=== PATIENT | male | born 1955 | race Caucasian/White ===

== ENCOUNTER 2020-04-07 08:52 | Emergency (ER) | payer MEDICARE, BC ==
[~2020-04-07] VITALS: Ht 170.2 cm; Wt 135.9 kg
[~2020-04-07 08:52] MED LIST: ALPRAZOLAM; ALTACE 5MG5 MG PO; AMITRIPTYLINE H25 M1 PO; ASPIRIN E.C. 8181 MG PO; CRESTOR40 MG PO; KLONOPIN 0.5MG0.5 MG PO; LEVAQUIN 5500 MG/TA1 PO; LIPITOR 80MG80 MG PO; METOPROLOL SUCCINATE; NITROSTAT0.4 MG SL; NITROSTAT0.4 MG/TAB SL; PHENERGAN 25 TA25 MG PO; PLAVIX 75MG TAB75 MG PO; TEGRETOL X100 MG/TAB PO; TEGRETOL X200 MG/TA1 PO; XANAX .25M0.25 MG/TA PO; ZOCOR 20MG20 MG PO; ZOLOFT 100MG100 MG PO; ZOLOFT100 MG PO; ZYRTEC 10MG10 MG PO
[2020-04-07 08:59] VITALS: TEMP 98.1
[2020-04-07 09:28] LABS: BASO # 0.1 (0.0-0.2); BASO % 0.6 % (0.0-2.0); EOS # 0.5 (0.0-0.7); EOS % 5.2 % (0-4.0); GRAN # 6.6 (1.4-6.5); GRAN % 64.2 % (42.2-75.2); HEMATOCRIT 44.7 % (42.0-52.0); LYMPH # 1.9 (1.2-3.4); LYMPH % 18.7 % (20.0-51.0); MEAN CELL VOLUME 91 fl (80.0-100.0); MEAN CORPUSCULAR HEMOGLOBIN 31 pg (27.0-31.0); MEAN CORPUSCULAR HGB CONC 34 g/dl (33.0-37.0); MEAN PLATELET VOLUME 9.6 fl (7.4-10.4); MONO # 1.1 (0.1-0.6); MONO % 10.8 % (1.7-9.3); PLATELET COUNT 204 K/mm3 (130-400); RED BLOOD COUNT 4.91 M/mm3 (4.20-5.60); REDCELL DISTRIBUTION WIDTH-CV 13.1 % (11.5-14.5)
[2020-04-07 09:29] LABS: INR 1.1 (0.8-3.0); PROTHROMBIN TIME 12.4 SECONDS (9.7-12.8)
[2020-04-07 09:45] LABS: BILIRUBIN,TOTAL 0.8 mg/dL (0.0-1.0); CALCIUM 9.1 mg/dL (8.4-10.2); CREATININE, serum 0.81 (0.66-1.25); POTASSIUM 4.3 mmol/L (3.4-5.0); TOTAL PROTEIN 7.2 gm/dL (6.4-8.2)
[2020-04-07 12:00] VITALS: BP 112/63; PULSE 63
== END 2020-04-07 12:10 | disposition home or self-care (01) ==
LOC: COL.ER 08:52
PROVIDERS: Family Medicine
DX: G45.9 Transient cerebral ischemic attack, unspecified (principal); Z87.891 Personal history of nicotine dependence; Z86.73 Personal history of transient ischemic attack (TIA), and cerebral infarction without residual deficits; Z79.02 Long term (current) use of antithrombotics/antiplatelets
CPT/HCPCS: Q9967

== ENCOUNTER → 2020-05-12 | Outpatient (CLI) | payer MEDICARE, BC | LOC: COL.RAD 13:30 | DX: G40.209 Localization-related (focal) (partial) symptomatic epilepsy and epileptic syndromes with complex partial seizures, not intractable, without status epilepticus (principal); G45.9 Transient cerebral ischemic attack, unspecified; G93.0 Cerebral cysts; I63.9 Cerebral infarction, unspecified ==

== ENCOUNTER → 2020-06-03 | Outpatient (CLI) | payer MEDICARE, BC | LOC: COL.PUL 12:59 | DX: R06.02 Shortness of breath (principal); Z87.891 Personal history of nicotine dependence | CPT/HCPCS: J7674 ==

== ENCOUNTER → 2020-06-10 | Outpatient (CLI) | payer MEDICARE, BC | LOC: COL.CARD 09:35 | DX: G40.909 Epilepsy, unspecified, not intractable, without status epilepticus (principal) ==

== ENCOUNTER 2020-11-21 09:13 | Emergency (ER) | payer MEDICARE, BC ==
[~2020-11-21] VITALS: Ht 170.2 cm; Wt 128.6 kg
[2020-11-21 09:17] VITALS: TEMP 97.6
[2020-11-21 09:48] LABS: COLLECTION METHOD CLEAN CATCH
[2020-11-21 09:50] LABS: BASO % 0.3 % (0.0-2.0); EOS # 1.1 (0.0-0.7); EOS % 8.3 % (0-4.0); GRAN # 8.5 (1.4-6.5); GRAN % 67.4 % (42.2-75.2); HEMATOCRIT 49.7 % (42.0-52.0); HEMOGLOBIN 17.1 g/dl (13.5-18.0); LYMPH # 1.7 (1.2-3.4); LYMPH % 13.5 % (20.0-51.0); MEAN CELL VOLUME 89 fl (80.0-100.0); MEAN CORPUSCULAR HEMOGLOBIN 31 pg (27.0-31.0); MEAN CORPUSCULAR HGB CONC 34 g/dl (33.0-37.0); MEAN PLATELET VOLUME 9.5 fl (7.4-10.4); MONO # 1.3 (0.1-0.6); PLATELET COUNT 263 K/mm3 (130-400); RED BLOOD COUNT 5.57 M/mm3 (4.20-5.60); REDCELL DISTRIBUTION WIDTH-CV 13.6 % (11.5-14.5)
[2020-11-21] MEDS ORDERED: CENTRUM SILVER1 TAB (09:52)
[2020-11-21] MEDS ORDERED: LOPRESSOR 225 MG/TAB PO (09:53)
[2020-11-21 09:57] LABS: MUCOUS Present /lpf; PH 5 (5-8); URINE APPEARANCE Hazy; URINE BACTERIA None Seen /hpf; URINE BILIRUBIN Negative (NEGATIVE); URINE BLOOD Negative (NEGATIVE); URINE COLOR Amber; URINE GLUCOSE Negative (NEGATIVE); URINE KETONE Negative (NEGATIVE); URINE LEUKOCYTE ESTERASE Negative (NEGATIVE); URINE NITRATE Negative (NEGATIVE); URINE PROTEIN(semi-quant) 1+ (NEGATIVE); URINE RBC 0-2 /hpf
[2020-11-21] MEDS ORDERED: OZEMPIC0.25 MG/0. SQ (09:57)
[2020-11-21] MEDS ORDERED: NITROSTAT0.4 MG/TAB SL (10:00)
[2020-11-21] MEDS ORDERED: CARDENE 20MG CA20 M1 PO (10:01)
[2020-11-21] MEDS ORDERED: VIAGRA50 M1 (10:02)
[2020-11-21] MEDS ORDERED: VITAMIND3 5000 PO (10:03)
[2020-11-21 10:04] LABS: ALBUMIN 4.4 gm/dL (3.5-5.0); BILIRUBIN,TOTAL 1.2 mg/dL (0.0-1.0); C-REACTIVE PROTEIN 3.3 mg/dL (0.0-0.9); CALCIUM 9.6 mg/dL (8.4-10.2); CREATININE, serum 0.93 (0.66-1.25); POTASSIUM 3.7 mmol/L (3.4-5.0); TOTAL PROTEIN 7.8 gm/dL (6.4-8.2)
[2020-11-21] MEDS ORDERED: XYOSTED100 MG/0.5 SQ (10:05)
[2020-11-21] MEDS ORDERED: PRAVACHOL80 MG PO (10:06)
[2020-11-21] MEDS ORDERED: LASIX 20MG TABL20 MG PO (10:07)
[2020-11-21] MEDS ORDERED: SYNTHROID0.1 MG/TAB PO (10:07)
[2020-11-21] MEDS ORDERED: ZOFRAN ODT4 MG PO (11:33)
[2020-11-21 12:35] VITALS: BP 119/74; PULSE 72
== END 2020-11-21 12:30 | disposition home or self-care (01) ==
LOC: COL.ER 09:13
PROVIDERS: Family Medicine
DX: K52.9 Noninfective gastroenteritis and colitis, unspecified (principal); Z88.0 Allergy status to penicillin; Z88.6 Allergy status to analgesic agent; Z87.891 Personal history of nicotine dependence; Z79.02 Long term (current) use of antithrombotics/antiplatelets; Z79.82 Long term (current) use of aspirin; Z90.49 Acquired absence of other specified parts of digestive tract
CPT/HCPCS: J2405; J7030; J7120; Q9967

== ENCOUNTER 2020-11-23 08:23 | Emergency (ER) | payer MEDICARE, BC ==
[~2020-11-23] VITALS: Ht 170.2 cm; Wt 128.6 kg
[~2020-11-23 08:23] MED LIST changes: +CARDENE 20MG CA20 M1 PO; +CENTRUM SILVER1 TAB; +LASIX 20MG TABL20 MG PO; +LOPRESSOR 225 MG/TAB PO; +OZEMPIC0.25 MG/0. SQ; +PRAVACHOL80 MG PO; +SYNTHROID0.1 MG/TAB PO; +VIAGRA50 M1; +VITAMIND3 5000 PO; +XYOSTED100 MG/0.5 SQ; +ZOFRAN ODT4 MG PO
[2020-11-23 08:27] VITALS: BP 103/77; TEMP 97.4
[2020-11-23 08:55] LABS: BASO % 0.2 % (0.0-2.0); EOS # 0.3 (0.0-0.7); GRAN # 9.3 (1.4-6.5); GRAN % 73.3 % (42.2-75.2); HEMATOCRIT 48.8 % (42.0-52.0); HEMOGLOBIN 16.4 g/dl (13.5-18.0); LYMPH # 1.8 (1.2-3.4); LYMPH % 14.4 % (20.0-51.0); MEAN CELL VOLUME 91 fl (80.0-100.0); MEAN CORPUSCULAR HEMOGLOBIN 31 pg (27.0-31.0); MEAN CORPUSCULAR HGB CONC 34 g/dl (33.0-37.0); MEAN PLATELET VOLUME 9.7 fl (7.4-10.4); MONO # 1.2 (0.1-0.6); MONO % 9.6 % (1.7-9.3); PLATELET COUNT 255 K/mm3 (130-400); RED BLOOD COUNT 5.38 M/mm3 (4.20-5.60); REDCELL DISTRIBUTION WIDTH-CV 13.9 % (11.5-14.5)
[2020-11-23 09:06] LABS: ALBUMIN 4.3 gm/dL (3.5-5.0); CALCIUM 9.4 mg/dL (8.4-10.2); CREATININE, serum 0.93 (0.66-1.25); POTASSIUM 3.8 mmol/L (3.4-5.0); TOTAL PROTEIN 7.4 gm/dL (6.4-8.2)
[2020-11-23 09:44] LABS: COLLECTION METHOD CLEAN CATCH
[2020-11-23 10:04] LABS: MUCOUS Present /lpf; PH 5 (5-8); SQUAMOUS EPITHELIAL 0-2 /hpf; URINE APPEARANCE Hazy; URINE BACTERIA Rare /hpf; URINE BILIRUBIN Negative (NEGATIVE); URINE BLOOD Negative (NEGATIVE); URINE COLOR Amber; URINE GLUCOSE Negative (NEGATIVE); URINE KETONE Trace (NEGATIVE); URINE LEUKOCYTE ESTERASE Negative (NEGATIVE); URINE NITRATE Negative (NEGATIVE); URINE PROTEIN(semi-quant) 1+ (NEGATIVE); URINE RBC 0-2 /hpf
[2020-11-23 12:12] VITALS: PULSE 70
== END 2020-11-23 12:08 | disposition home or self-care (01) ==
LOC: COL.ER 08:23
PROVIDERS: Emergency Medicine
DX: K52.9 Noninfective gastroenteritis and colitis, unspecified (principal); I25.2 Old myocardial infarction; Z88.0 Allergy status to penicillin; Z88.6 Allergy status to analgesic agent; Z87.891 Personal history of nicotine dependence; Z79.02 Long term (current) use of antithrombotics/antiplatelets; Z79.82 Long term (current) use of aspirin; Z90.49 Acquired absence of other specified parts of digestive tract; Z95.9 Presence of cardiac and vascular implant and graft, unspecified; Z20.822 Contact with and (suspected) exposure to COVID-19
CPT/HCPCS: J2405; J7120